=== PATIENT | female | born 1950 | race Caucasian/White ===

== ENCOUNTER → 2018-01-05 | Outpatient (CLI) | payer OTHER ==
[~2018-01-05] MED LIST: ADIPEX-P37.5 MG PO; AMITRIPTYLINE H10 M3 PO; BENICAR20 MG PO; CYCLOBENZAPRINE5 MG PO; CYMBALTA60 MG PO; GLYBURIDE 2.52.5 MG PO; LIPITOR 20 MG T20 M1; METFORMIN HCL1000 MG PO; NEURONTIN600 MG PO; OXYCODONE HCL10 MG; VALIUM5 MG PO
== END ==
LOC: RAD 09:48
DX: M51.36 Other intervertebral disc degeneration, lumbar region (principal)

== ENCOUNTER 2018-01-06 18:19 | Emergency (ER) | payer OTHER ==
[~2018-01-06] VITALS: Ht 170.2 cm; Wt 108.4 kg
--- NOTE | ~2018-01-06 | EKG ---
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: MARY : 1950 Requested By: Edwin Brock Order Number: [id number] MD: Favian Gonzalez Measurements Intervals [place] Rate: 78 P: 62 IN: 148 QRS: 25 QRSD: 103 T: 24 QT: 380 QTc: 433 Interpretive Statements Sinus rhythm No significant abnormality No previous ECG available for comparison Electronically Signed On 01-07-2018 8:10:18 CHANNEL MARKETING SPECIALIST by Favian Gonzalez [email or web address] <ELECTRONICALLY SIGNED> By: Favian Gonzalez MD, [facility] 01/07/18 0810 1838 1838 Favian Gonzalez MD, FACC /EPI
[2018-01-06 19:30] LABS: ABSOLUTE NEUTROPHILS 4.9 thou/uL (1.4-8.2); BASOPHILS 1.1 % (0.0-2.0); EOSINOPHILS 1.8 % (0.0-3.0); HEMATOCRIT 28.1 % (37.0-47.0); HEMOGLOBIN 9.3 gm/dL (12.0-15.0); LYMPHOCYTES 22.9 % (24.0-44.0); MCH 26.5 pg (26.0-34.0); MCHC 33.1 g/dL (28.0-37.0); MCV 80.1 fL (80.0-100.0); MONOCYTES 6.7 % (1.0-8.0); PLATELET COUNT 319 thou/uL (150-400); POLYS 67.5 % (36.0-66.0); RBC 3.52 mil/uL (4.20-5.00); RDW 14.5 % (10.5-14.5); WBC 7.2 thou/uL (4.0-11.0)
[2018-01-06 19:40] LABS: ANION GAP 9 mmol/L (7-16); BUN 28 mg/dL (7-18); CALCIUM 9.6 mg/dL (8.5-10.1); CHLORIDE 104 mmol/L (98-107); CO2 27 mmol/L (21-32); CREATININE 1.2 mg/dL (0.6-1.0); GLUCOSE 76 mg/dL (74-106); POTASSIUM 3.8 mmol/L (3.5-5.1); SODIUM 140 mmol/L (136-145)
[2018-01-06] MEDS ORDERED: OXYCODONE HCL10 MG (19:42)
[2018-01-06] MEDS ORDERED: BENICAR20 MG PO (19:42)
[2018-01-06] MEDS ORDERED: CYMBALTA60 MG PO (19:42)
[2018-01-06] MEDS ORDERED: VALIUM5 MG PO (19:42)
[2018-01-06] MEDS ORDERED: AMITRIPTYLINE H10 M3 PO (19:42)
[2018-01-06] MEDS ORDERED: METFORMIN HCL1000 MG PO (19:43)
[2018-01-06] MEDS ORDERED: NEURONTIN600 MG PO (19:43)
[2018-01-06] MEDS ORDERED: LIPITOR 20 MG T20 M1 (19:43)
[2018-01-06 19:45] LABS: ALBUMIN 3.3 g/dL (3.4-5.0); SGOT 19 U/L (15-37); SGPT 26 U/L (30-65); TOTAL BILIRUBIN 0.3 mg/dL (<0.1-1.0); TOTAL PROTEIN 7.2 g/dL (6.4-8.2); TROPONIN-I < 0.04 ng/mL (<0.06)
[2018-01-06] MEDS ORDERED: GLYBURIDE 2.52.5 MG PO (19:54)
[2018-01-06] MEDS ORDERED: ADIPEX-P37.5 MG PO (19:55)
[2018-01-06] MEDS ORDERED: CYCLOBENZAPRINE5 MG PO (20:40)
[2018-01-06 20:45] VITALS: BP 145/76
== END 2018-01-06 21:01 | disposition home or self-care (01) ==
LOC: ER 18:19
PROVIDERS: Physician Assistant
DX: M62.830 Muscle spasm of back (principal); E86.0 Dehydration; K21.9 Gastro-esophageal reflux disease without esophagitis; I10 Essential (primary) hypertension; Z90.49 Acquired absence of other specified parts of digestive tract; Z90.710 Acquired absence of both cervix and uterus

== ENCOUNTER 2018-01-24 21:20 | Inpatient (IN) | payer OTHER ==
[~2018-01-24] VITALS: Ht 170.2 cm; Wt 117.5 kg
--- NOTE | ~2018-01-24 | EKG ---
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: lori : 1950 Requested By: Shaheed Herrera Order Number: [id number] MD: Favian Gonzalez Measurements Intervals [place] Rate: 75 P: 29 ID: 231 QRS: 29 QRSD: 103 T: 19 QT: 391 QTc: 437 Interpretive Statements Sinus rhythm Low voltage Compared to ECG 01/06/2018 18:38:03 no significant change was found Electronically Signed On 01-25-2018 8:02:24 GUEST SPECIALIST by Favian Gonzalez [email or web address] <ELECTRONICALLY SIGNED> By: Favian Gonzalez MD, [facility] 01/25/18 0802 03 03 Favian Gonzalez MD, [facility] /EPI
--- NOTE | ~2018-01-24 | HC ---
[facility] [place] [address] CONSULTATION Name: CHELLY MARTINES Room #: 245-P [facility] IN M.R.#: [id number] Admission: 01/24/18 Attend Phys: Kraig Leyva MD Discharge: Date of : 54 Report #: [id number] THIS REPORT FOR: //name// CC: Harjit Gandhi REASON FOR CONSULTATION: Elevated creatinine. REASON FOR PRESENTATION: Mental status issues and hypoglycemia. HISTORY OF PRESENT ILLNESS: A 67-year-old with past medical history of diabetes mellitus and hypertension. She was acting in an unusual way yesterday. She was talking with her when he realized that she has an acute mental status issues. She was confused. She was not making sense to him. She also had some visual hallucination. She was brought for further evaluation and management. Upon presentation, her blood sugar was 37. She is known to be diabetic and is maintained on glyburide and metformin. She is also maintained on olmesartan. On her presentation to the emergency room, she was found to have an acute kidney injury with elevated creatinine of 10.5. I was consulted to manage her acute kidney injuries. She denies nonsteroidal anti-inflammatory medications intake. She is not aware of any previous kidney problems. She has no uremic symptoms. MEDICATIONS: 1. Olmesartan. 2. Atorvastatin. 3. Metformin. 4. Gabapentin. 5. Glyburide. PAST MEDICAL AND SURGICAL HISTORY: 1. Osteoarthritis. 2. GERD. 3. Status post appendectomy. 4. Hysterectomy. 5. Diabetes mellitus. 6. Hypertension. 7. Arthroplasty of the left knee. 8. Cholecystectomy. SOCIAL HISTORY: She is a former smoker, she quit about one year ago. No drug or alcohol abuse. She lives with her . ALLERGIES: SULFA. REVIEW OF SYSTEMS: GENERAL: Significant for the above-mentioned symptoms. [facility] [address] [place] [address] CONSULTATION Name: CHELLY MARTINES Room #: 245-P [facility] IN [facility].#: [id number] Admission: 01/24/18 Attend Phys: Kraig Leyva MD Discharge: Date of : 54 Report #: [id number] CARDIOVASCULAR: No chest pain or palpitation. PULMONARY: No cough or hemoptysis. GASTROINTESTINAL: Significant for nausea, vomiting, and diarrhea. GENITOURINARY: No frequency, no urgency, and no hesitancy. NEUROLOGIC: As per the history of present illness. SKIN: No rash or ulcerations. PHYSICAL EXAMINATION: GENERAL: She is alert and oriented. VITAL SIGNS: Temperature 36.6, blood pressure 122/59. HEAD AND NECK: No jugular venous distention, no bruit, no thyromegaly. CHEST: Clear to auscultation bilaterally. CARDIOVASCULAR: Regular with no rub detected. ABDOMEN: Soft, nontender with no hepatosplenomegaly. LOWER EXTREMITIES: No edema with intact peripheral pulses. LABORATORY VALUES: Reviewed. She is anemic with a hemoglobin of 8.6. No eosinophilia. Sodium 140, potassium 5.3, carbon dioxide 18, BUN 97, creatinine 10.1, calcium 8, phosphorus 8.9. ASSESSMENT, IMPRESSION, AND PLAN: 1. Acute kidney injury. 2. Hyperkalemia. 3. Metabolic acidosis. 4. Hyperphosphatemia. 5. Anemia. 6. This is a rather dramatic acute kidney injury with metabolic acidosis, likely related to metformin. 7. We will initiate the appropriate workup. 8. Discontinue all offending agents including oral hypoglycemic agent. 9. Discontinue ARB. 10. Serology workup. 11. Keep on IV fluid. 12. Strict input and output. 13. Ultrasound of both kidneys. 14. We will continue to follow along. <ELECTRONICALLY SIGNED> By: Harjit Gomes MD 01/27/18 1014 0830 1110 Harjit Gomes MD /nt
[2018-01-24 21:28] VITALS: BP 138/60
[2018-01-24 22:00] LABS: EOSINOPHILS 1.4 % (0.0-3.0); HEMATOCRIT 25.6 % (37.0-47.0); HEMOGLOBIN 8.6 gm/dL (12.0-15.0); LYMPHOCYTES 9.3 % (24.0-44.0); MCH 26.6 pg (26.0-34.0); MCHC 33.6 g/dL (28.0-37.0); MCV 79.2 fL (80.0-100.0); MONOCYTES 5.9 % (1.0-8.0); PLATELET COUNT 224 thou/uL (150-400); POLYS 82.4 % (36.0-66.0); RBC 3.23 mil/uL (4.20-5.00); RDW 15.5 % (10.5-14.5); WBC 7.3 thou/uL (4.0-11.0)
[2018-01-24 22:13] LABS: ANION GAP 18 mmol/L (7-16); BUN 103 mg/dL (7-18); CALCIUM 9.1 mg/dL (8.5-10.1); CHLORIDE 103 mmol/L (98-107); CO2 18 mmol/L (21-32); CREATININE 10.7 mg/dL (0.6-1.0); SODIUM 139 mmol/L (136-145)
[2018-01-24 22:18] LABS: MAGNESIUM 2.1 mg/dL (1.8-2.4); SGOT 20 U/L (15-37); SGPT 21 U/L (30-65); TOTAL BILIRUBIN 0.3 mg/dL (<0.1-1.0); TOTAL PROTEIN 6.6 g/dL (6.4-8.2); TROPONIN-I < 0.04 ng/mL (<0.06)
[2018-01-24 22:23] LABS: GLUCOSE 39 mg/dL (74-106)
[2018-01-25] VITALS (14 sets, daily range): BP systolic 86–126; BP diastolic 30–69
[2018-01-25 01:27] LABS: URINE BILIRUBIN NEGATIVE (Negative); URINE BLOOD NEGATIVE (Negative); URINE CLARITY CLEAR; URINE COLOR YELLOW; URINE GLUCOSE-RANDOM* NEGATIVE (Negative); URINE KETONES NEGATIVE (Negative); URINE LEUKOCYTES-REFLEX NEGATIVE (Negative); URINE NITRITE-REFLEX NEGATIVE (Negative); URINE PROTEIN (DIPSTICK) NEGATIVE (Negative); URINE SPECIFIC GRAVITY 1.015 (1.005-1.035); URINE UROBILINOGEN 0.2 E.U./dl (0.2-1.0)
[2018-01-25 06:48] LABS: HEMATOCRIT 24.6 % (37.0-47.0); MCH 26.4 pg (26.0-34.0); MCHC 32.8 g/dL (28.0-37.0); MCV 80.7 fL (80.0-100.0); RBC 3.05 mil/uL (4.20-5.00); RDW 15.3 % (10.5-14.5); WBC 6.6 thou/uL (4.0-11.0)
[2018-01-25 07:07] LABS: CREATININE 10.1 mg/dL (0.6-1.0); PHOSPHORUS 8.9 mg/dL (2.5-4.9); POTASSIUM 5.3 mmol/L (3.5-5.1)
[2018-01-25 11:10] LABS: URINE CREATININE-RANDOM* 35.6 mg/dL; URINE PROTEIN-RANDOM* 32.1 mg/dL (<11.9)
[2018-01-25 15:09] LABS: IgA 143 mg/dL (87-352); IgG 519 mg/dL (700-1600); IgM 31 mg/dL (26-217)
[2018-01-26] VITALS (25 sets, daily range): BP systolic 94–151; BP diastolic 58–106
[2018-01-26 04:58] LABS: ALBUMIN 2.2 g/dL (3.4-5.0); CALCIUM 7.5 mg/dL (8.5-10.1); CREATININE 9.4 mg/dL (0.6-1.0); PHOSPHORUS 6.4 mg/dL (2.5-4.9); POTASSIUM 5.5 mmol/L (3.5-5.1)
[2018-01-26 10:13] LABS: COMPLEMENT-C3 144 mg/dL (82-167); COMPLEMENT-C4 33 mg/dL (14-44)
[2018-01-27] VITALS (30 sets, daily range): BP systolic 84–157; BP diastolic 59–119
[2018-01-27 05:02] LABS: HEMATOCRIT 25.3 % (37.0-47.0); HEMOGLOBIN 8.5 gm/dL (12.0-15.0); MCH 26.6 pg (26.0-34.0); MCHC 33.5 g/dL (28.0-37.0); MCV 79.3 fL (80.0-100.0); RBC 3.19 mil/uL (4.20-5.00); WBC 8.1 thou/uL (4.0-11.0)
[2018-01-27 05:14] LABS: ALBUMIN 2.2 g/dL (3.4-5.0); CREATININE 9.2 mg/dL (0.6-1.0); PHOSPHORUS 6.5 mg/dL (2.5-4.9); POTASSIUM 5.6 mmol/L (3.5-5.1)
[2018-01-27 08:08] LABS: GLOBULIN TOTAL 2.4 g/dL (2.2-3.9); M-SPIKE Not Observed g/dL (Not Observed)
[2018-01-27 10:37] LABS: BE(vivo) -12.1 mmol/L (-2 to +3); HCO3 13.3 mmol/L (22.0-26.0); PCO2 28.7 mmHg (35.0-45.0); PO2 92.2 mmHg (80.0-100.0); pH 7.285 (7.360-7.450); sO2 96.3 % (92.0-98.0)
[2018-01-27 15:10] LABS: KAPPA FREE LIGHT CHAINS 61.8 mg/L (3.3-19.4); KAPPA/LAMBDA RATIO 1.54 (0.26-1.65); LAMBDA FREE LIGHT CHAINS 40.1 mg/L (5.7-26.3)
[2018-01-28] VITALS (30 sets, daily range): BP systolic 119–154; BP diastolic 59–118
[2018-01-28 05:45] LABS: HEMATOCRIT 23.1 % (37.0-47.0); MCH 26.7 pg (26.0-34.0); MCHC 34.6 g/dL (28.0-37.0); MCV 77.2 fL (80.0-100.0); RBC 2.99 mil/uL (4.20-5.00); RDW 15.7 % (10.5-14.5); WBC 7.1 thou/uL (4.0-11.0)
[2018-01-28 05:54] LABS: ALBUMIN 2.2 g/dL (3.4-5.0); CALCIUM 8.2 mg/dL (8.5-10.1); PHOSPHORUS 5.7 mg/dL (2.5-4.9); POTASSIUM 4.4 mmol/L (3.5-5.1)
[2018-01-28 05:58] LABS: CREATININE 6.1 mg/dL (0.6-1.0)
[2018-01-28 13:07] LABS: ANA INTERPRETATION Negative (Negative)
[2018-01-28 14:08] LABS: HEP B SURFACE Ab(ANTI-HBS Non Reactive (()); HEPATITIS B SURFACE AG Negative (Negative)
[2018-01-29 00:01] VITALS: BP 126/73
[2018-01-29 05:01] LABS: HEMOGLOBIN 7.8 gm/dL (12.0-15.0); MCH 26.5 pg (26.0-34.0); MCHC 34.1 g/dL (28.0-37.0); MCV 77.9 fL (80.0-100.0); RBC 2.95 mil/uL (4.20-5.00); RDW 15.5 % (10.5-14.5); WBC 5.9 thou/uL (4.0-11.0)
[2018-01-29 05:10] LABS: ALBUMIN 2.3 g/dL (3.4-5.0); CALCIUM 8.2 mg/dL (8.5-10.1); POTASSIUM 3.7 mmol/L (3.5-5.1)
[2018-01-29 05:21] LABS: CREATININE 4.8 mg/dL (0.6-1.0)
[2018-01-29 08:00] VITALS: BP 137/72
[2018-01-29 12:00] VITALS: BP 140/85
[2018-01-29 15:53] VITALS: BP 140/72
[2018-01-30 03:45] VITALS: BP 157/80
[2018-01-30 06:10] LABS: HEMATOCRIT 23.6 % (37.0-47.0); HEMOGLOBIN 7.9 gm/dL (12.0-15.0); MCH 26.2 pg (26.0-34.0); MCHC 33.4 g/dL (28.0-37.0); MCV 78.4 fL (80.0-100.0); RBC 3.01 mil/uL (4.20-5.00); RDW 15.3 % (10.5-14.5); WBC 6.3 thou/uL (4.0-11.0)
[2018-01-30 06:21] LABS: CALCIUM 8.5 mg/dL (8.5-10.1); CREATININE 5.4 mg/dL (0.6-1.0); POTASSIUM 3.7 mmol/L (3.5-5.1)
[2018-01-30 21:00] VITALS: BP 152/80
[2018-01-31 04:45] VITALS: BP 161/83
[2018-01-31 06:35] LABS: ALBUMIN 2.4 g/dL (3.4-5.0); CALCIUM 8.7 mg/dL (8.5-10.1); CREATININE 5.6 mg/dL (0.6-1.0); PHOSPHORUS 5.6 mg/dL (2.5-4.9); POTASSIUM 3.7 mmol/L (3.5-5.1)
[2018-01-31 08:00] VITALS: BP 154/80
[2018-01-31 12:00] VITALS: BP 147/78
[2018-01-31 16:11] VITALS: BP 144/78
[2018-01-31 18:50] VITALS: BP 149/61
[2018-02-01 03:04] VITALS: BP 143/85
[2018-02-01 08:21] VITALS: BP 154/76
[2018-02-01 08:59] LABS: ALBUMIN 2.6 g/dL (3.4-5.0); CALCIUM 8.7 mg/dL (8.5-10.1); CREATININE 5.9 mg/dL (0.6-1.0); PHOSPHORUS 5.7 mg/dL (2.5-4.9); POTASSIUM 3.7 mmol/L (3.5-5.1)
[2018-02-01 13:24] VITALS: BP 145/73
[2018-02-01 18:05] VITALS: BP 135/85
[2018-02-02 04:00] VITALS: BP 171/84
[2018-02-02 06:00] LABS: HEMATOCRIT 21.6 % (37.0-47.0); HEMOGLOBIN 7.4 gm/dL (12.0-15.0); MCH 26.8 pg (26.0-34.0); MCV 78.9 fL (80.0-100.0); RBC 2.74 mil/uL (4.20-5.00); RDW 15.4 % (10.5-14.5); WBC 6.2 thou/uL (4.0-11.0)
[2018-02-02 06:15] LABS: ALBUMIN 2.5 g/dL (3.4-5.0); CALCIUM 8.6 mg/dL (8.5-10.1); CREATININE 5.8 mg/dL (0.6-1.0); PHOSPHORUS 5.8 mg/dL (2.5-4.9); POTASSIUM 3.8 mmol/L (3.5-5.1)
[2018-02-02 08:12] VITALS: BP 182/74
[2018-02-02 12:38] VITALS: BP 180/92
[2018-02-02 20:05] VITALS: BP 150/77
[2018-02-03] VITALS (7 sets, daily range): BP systolic 149–187; BP diastolic 69–99
[2018-02-03 01:10] LABS: GLYCOHEMOGLOBIN (HGB A1C) 5.1 % (4.8-5.6)
[2018-02-03 06:32] LABS: ALBUMIN 2.7 g/dL (3.4-5.0); CALCIUM 8.5 mg/dL (8.5-10.1); CREATININE 5.9 mg/dL (0.6-1.0); POTASSIUM 3.6 mmol/L (3.5-5.1)
[2018-02-04 04:20] VITALS: BP 174/88
[2018-02-04 05:30] VITALS: BP 156/78
[2018-02-04 06:37] LABS: ALBUMIN 2.7 g/dL (3.4-5.0); CALCIUM 8.7 mg/dL (8.5-10.1); CREATININE 5.6 mg/dL (0.6-1.0); PHOSPHORUS 6.2 mg/dL (2.5-4.9); POTASSIUM 3.5 mmol/L (3.5-5.1)
[2018-02-04 08:41] VITALS: BP 157/84
[2018-02-04 13:06] VITALS: BP 157/84
== END 2018-02-04 14:44 | disposition home or self-care (01) | DRG 682 ==
LOC: ER 21:20 → EROBS 22:40 → 2N 22:40 → ICU 22:40 → 2N 01-25 00:06 → ICU 01-25 10:17 → 3W 01-29 18:06 → ENTRNSPT 02-04 14:34 → EDTRNSPTSTS 02-04 14:38 → 3W 02-04 14:44
PROVIDERS: Emergency Medicine; Hospitalist; Internal Medicine; Internal Medicine Nephrology; Nurse Practitioner Acute Care
PROC: 5A1D70Z Performance of Urinary Filtration, Intermittent, Less than 6 Hours Per Day (ICD-10-PCS; principal; 2018-01-27)
PROC: 02HV33Z Insertion of Infusion Device into Superior Vena Cava, Percutaneous Approach (ICD-10-PCS; 2018-01-27)
PROC: 5A1D70Z Performance of Urinary Filtration, Intermittent, Less than 6 Hours Per Day (ICD-10-PCS; 2018-01-28)
DX: N17.0 Acute kidney failure with tubular necrosis (principal); G93.41 Metabolic encephalopathy; E87.2 Acidosis; Z68.41 Body mass index [BMI] 40.0-44.9, adult; K21.9 Gastro-esophageal reflux disease without esophagitis; I10 Essential (primary) hypertension; E66.9 Obesity, unspecified; D64.9 Anemia, unspecified; E11.649 Type 2 diabetes mellitus with hypoglycemia without coma; E87.5 Hyperkalemia; E83.39 Other disorders of phosphorus metabolism; E78.5 Hyperlipidemia, unspecified; F32.9 Major depressive disorder, single episode, unspecified; Z96.652 Presence of left artificial knee joint; Z87.891 Personal history of nicotine dependence; Z90.49 Acquired absence of other specified parts of digestive tract; Z90.710 Acquired absence of both cervix and uterus; Z79.899 Other long term (current) drug therapy; Z88.2 Allergy status to sulfonamides; Z82.49 Family history of ischemic heart disease and other diseases of the circulatory system
CPT/HCPCS: 10078; 10203; 10879; 27000; 32100

== ENCOUNTER → 2018-04-27 | Outpatient (CLI) | payer OTHER | LOC: RAD 16:08 | DX: M16.11 Unilateral primary osteoarthritis, right hip (principal); M76.891 Other specified enthesopathies of right lower limb, excluding foot ==

== ENCOUNTER → 2018-10-27 | Outpatient (CLI) | payer OTHER ==
--- NOTE | ~2018-10-27 | SLE ---
[facility] [place] [address] POLYSOMNOGRAPHY STUDY Name: CHELLY MARTINES Room #: [facility]#: [id number] Admission: 10/27/18 Attend Phys: Bernard Valentine MD Discharge: Date of : 54 Report #: [id number] THIS REPORT FOR: //name// CC: Bernard Gandhi MD DATE OF SERVICE: 10/27/2018 ATTENDING PHYSICIAN: Dr. Yadiel Gandhi. The patient is a 67-year-old who weighs 245 pounds and is 67 inches tall with a BMI of 38.4. The patient's [place] score was 9. The patient has a history of sleep apnea and needed a new CPAP machine. Per insurance request only a PSG was requested. During the night study, the patient spent 361 minutes in bed and slept for 249 minutes with a low sleep efficiency of 69%. Sleep latency was 18 minutes with absent REM sleep. Sleep architecture showed increased stage 1 and stage 2 sleep, normal slow wave and absent REM sleep. During the night study, the patient had 65 apneas, 41 obstructive, 22 mixed and 2 central, and 80 hypopneas. The patient's apnea-hypopnea index was 35 per hour. REM index was not available due to lack of REM sleep. The patient's supine index was 65 per hour. EKG monitoring revealed an average heart rate of 69 beats per minute and the maximum 85 beats per minute, normal sinus rhythm, no sustained arrhythmias observed. PLMS were seen at an index of 10.6 per hour and 2.9 per hour caused EEG arousals. Nocturnal oximetry study revealed an average oxygen saturation of 93% with a lowest of 79%. Twenty minutes were spent in oxygen saturation of less than 89%. The patient did meet the criteria for split night study; however, per insurance requirement only PSG was ordered. IMPRESSION: 1. Severe sleep apnea-hypopnea syndrome at an apnea-hypopnea index of 35 per hour. Absence of REM sleep can further underestimate the severity of sleep apnea. 2. Nocturnal hypoxia secondary to obstructive sleep apnea. 3. Mild periodic limb movements of sleep without any significant EEG arousals. RECOMMENDATIONS: [facility] [address] [place] [address] POLYSOMNOGRAPHY STUDY Name: CHELLY MARTINES Room #: [facility]#: [id number] Admission: 10/27/18 Attend Phys: Bernard Valentine MD Discharge: Date of : 54 Report #: [id number] 1. The patient would benefit from in-lab CPAP titration study. 2. Once optimum CPAP pressure is achieved, then follow up in 4-6 weeks to assess compliance with CPAP and to document clinical improvement. 3. Weight loss is strongly advised. 4. Avoid SUBWAY REPAIR SUPERVISOR depressants. 5. Cautioned regarding driving until symptoms of sleep apnea have resolved with the use of CPAP. <ELECTRONICALLY SIGNED> By: Bernard Valentine MD 10/31/18 2157 1431 1453 Bernard Valentine MD /ta
== END ==
LOC: SLEEPLAB 09:51
DX: G47.33 Obstructive sleep apnea (adult) (pediatric) (principal); G47.61 Periodic limb movement disorder; R09.02 Hypoxemia

== ENCOUNTER → 2019-09-28 | Outpatient (CLI) | payer OTHER ==
[~2019-09-28] MED LIST changes: +AMITRIPTYLINE H10 M1 PO; +ASPIR 8181 MG PO; +COMMODE MISCELL; +IBUPROFEN 400400 M2 PO; -LIPITOR 20 MG T20 M1; +LIPITOR 20 MG T20 M1 PO; +NEURONTIN 300300 M1 PO; +OXYCODONE HCL10 MG PO; +VITAMIN D31000 UNIT PO
--- NOTE | 2019-09-28 09:47 | 2DMMODE ---
[facility] [place] [address] 2 D/M-MODE ECHOCARDIOGRAM Name: CHELLY MARTINES Room #: [facility]#: [id number] Admission: 09/28/19 Attend Phys: Ty Benson MD Discharge: Date of : 54 Report #: [id number] THIS REPORT FOR: //name// APPROVED REPORT Study performed: 09/28/2019 07:54:29 EXAM: Comprehensive 2D, Doppler, and color-flow Echocardiogram Patient Location: Out-Patient Status: routine BSA: 2.21 HR: 71 bpm BP: 126/76 mmHg Rhythm: NSR Other Information Study Quality: Adequate Indications Dyspnea Hx: DM, HTN, HLP, Tobacco use 2D Dimensions RVDd: 30.30 mm IVSd: 11.87 (7-11mm) LVOT Diam: 20.42 (18-24mm) LVDd: 50.26 mm PWd: 10.72 (7-11mm) Ascending Ao: 34.29 (22-36mm) LVDs: 33.68 (25-40mm) Aortic Root: 33.89 mm IVC: 13.00 mm Volumes Left Atrial Volume (Systole) Single Plane 4CH: 79.96 mL Single Plane 2CH: 43.48 mL LA ESV Index: 28.00 mL/m2 Aortic Valve AoV Peak Joseph.: 1.51 m/s AO Peak Gr.: 9.08 mmHg LVOT Max P.94 mmHg LVOT Max V: 0.99 m/s HECTOR Vmax: 2.16 cm2 Mitral Valve E/A Ratio: 0.6 MV Decel. Time: 275.21 ms [facility] [address] [place] [address] 2 D/M-MODE ECHOCARDIOGRAM Name: BOBBICHELLY J Room #: [facility]#: [id number] Admission: 09/28/19 Attend Phys: Ty Benson MD Discharge: Date of : 54 Report #: [id number] MV E Max Joseph.: 0.64 m/s MV A Joseph.: 1.05 m/s MV PHT: 79.81 ms IVRT: 78.43 ms Pulmonary Valve PV Peak Joseph.: 1.05 m/s PV Peak Gr.: 4.39 mmHg Pulmonary Vein P Vein S: 0.50 m/s P Vein A: 0.32 m/s P Vein D: 0.27 m/s P Vein A Dur.: 92.3 msec P Vein S/D Ratio: 1.85 Tricuspid Valve TR Peak Joseph.: 2.64 m/s RAP Estimate: 5.00 mmHg TR Peak Gr.: 27.80 mmHg PA Pressure: 32.00 mmHg Left Ventricle The left ventricle is normal size. There is normal LV segmental wall motion. There is normal left ventricular wall thickness. The left ventricular systolic function is normal. The left ventricular ejection fraction is within the normal range. LVEF is 65-70%. Mild diastolic dysfunction is present (impaired relaxation pattern). Right Ventricle The right ventricle is normal size. The right ventricular systolic function is normal. Atria The left atrium size is normal. The right atrium size is normal. Aortic Valve Aortic valve is mildly calcified. No aortic regurgitation is present. There is no aortic valvular stenosis. Mitral Valve The mitral valve is normal in structure. No mitral regurgitation. No evidence of mitral valve stenosis. Tricuspid Valve The tricuspid valve is normal in structure. Mild tricuspid regurgitation. Estimated PAP is 32 mmHg. [facility] [address] [place] [address] 2 D/M-MODE ECHOCARDIOGRAM Name: CHELLY MARTINES [place] Room #: [facility]#: [id number] Admission: 09/28/19 Attend Phys: Ty Benson MD Discharge: Date of : 54 Report #: [id number] Pulmonic Valve The pulmonary valve is normal in structure. Mild pulmonic regurgitation. Great Vessels The aortic root is normal in size. IVC is normal in size and collapses >50% with inspiration. Pericardium There is no pericardial effusion. <Conclusion> The left ventricular systolic function is normal. There is normal LV segmental wall motion. LVEF is 65-70%. Mild diastolic dysfunction Aortic valve is mildly calcified. No aortic regurgitation or stenosis The mitral valve is normal in structure. No mitral regurgitation. Mild tricuspid regurgitation. Estimated pulmonary artery pressure of 32 mmHg. There is no pericardial effusion. <ELECTRONICALLY SIGNED> By: Favian Gonzalez MD, FACC 09/28/19946 6 6 Favian Gonzalez MD, FACC /INF
--- NOTE | 2019-10-03 17:20 | PFR/MVV ---
[facility] [place] [address] PULMONARY FUNCTION MVV/REPORT Name: CHELLY MARTINES Room #: REG [facility].#: [id number] Admission: 09/28/19 Attend Phys: Ty Benson MD Discharge: Date of : 54 Report #: [id number] THIS REPORT FOR: //name// >> SPIROMETRY: (BTPS) Height: 67 in cm Weight: 248 lbs kg Exam Date: 09/28/19 PRE-RX POST-RX PRED BEST %PRED BEST %PRED %CHG FVC LITERS . 3.27 . 4.41 . 135 . 4.11 . 126 . -7 FEV1 LITERS . 2.38 . 3.33 . 140 . 3.31 . 139 . -1 FEV1/FVC % . 72 . 76 . 105 . 81 . 112 . 7 HPK99-45% L/Sec . 2.59 . 2.96 . 114 . 3.48 . 134 . 18 PEF L/SEC . 5.95 . 5.76 . 97 . 5.47 . 92 . -5 FEF50/FIF50 UNITLESS . . 0.69 . . .127 . . 83 MVV L/Min . 87 . 64 . 73 f 1/Min . . 155 . >> LUNG VOLUMES: (BTPS) PRE-RX POST-RX PRED AVG %PRED AVG %PRED %CHG VC Liters . 3.27 . 4.41 . 135 . . . TLC Liters . 5.45 . 5.95 . 109 . . . RV Liters . 2.14 . 1.54 . 72 . . . RV/TLC % . 39 . 26 . 66 . . . FRC [address] Liters . 2.40 . 2.18 . 91 . . . FRC N2 Liters . . . . . . ERV Liters . 1.10 . 0.63 . 58 . . . IC Liters . 2.20 . 2.83 . 129 . . . >> DIFFUSION: DLCO ml/Min/mmHg . 27.1 . 25.1 . 93 . . . DL Suzy ml/Min/mmHg . 27.1 . 25.1 . 93 . . . DLCO/VA ml/Min/mmHg . 3.65 . 4.27 . 117 . . . VA Liters . . 5.88 . . . . COMMENTS: COMMENTS: >> RESISTANCE: [facility] [address] [place] [address] PULMONARY FUNCTION MVV/REPORT Name: WILLIEALDOCHELLY Machado Room #: [facility].#: [id number] Admission: 09/28/19 Attend Phys: Ty Benson MD Discharge: Date of : 54 Report #: [id number] PRE-RX PRED AVG %PRED Raw Total cmH20/L/Sec . . 3.37 . Raw Insp cmH20/L/Sec . . 2.70 . Raw Exp cmH20/L/Sec . . 2.90 . Raw cmH20/L/Sec . 1.62 . 2.14 . 132 Gaw L/Sec/cmH20 . 0.574 . 0.468 . 81 sRaw cmH20 Sec . 3.89 . 7.30 . 188 sGaw l/cmH20 Sec . 0.257 . 0.137 . 53 Vtq Liters . . 3.41 . # = OUTSIDE 95% CONFIDENCE INTERVAL CALIBRATION: PRED: 3.00 ACTUAL: EXP 3.01 INSP 3.02 [facility]OL10-06 [facility] N-1804-4 >> INTERPRETATION/IMPRESSION: CC: Yadiel Benson Pulmonary Function Test Spirometric examination was normal. There was no significant bronchodilator response. Lung volumes are normal. Diffusion capacity is normal, corrected for alveolar volume. Flow volume loop is normal. IMPRESSION: Normal pulmonary functions. <ELECTRONICALLY SIGNED> By: Ty Benson MD 10/03/19 1720 Ty Benson MD /nt
== END ==
LOC: CV 07:31
DX: I08.8 Other rheumatic multiple valve diseases (principal); R06.00 Dyspnea, unspecified; M47.814 Spondylosis without myelopathy or radiculopathy, thoracic region; E11.9 Type 2 diabetes mellitus without complications; I10 Essential (primary) hypertension; E78.5 Hyperlipidemia, unspecified; Z72.0 Tobacco use

== ENCOUNTER 2019-09-29 08:59 | Inpatient (IN) | payer OTHER ==
[2019-09-15 13:15] LABS: URINE BILIRUBIN NEGATIVE (Negative); URINE BLOOD NEGATIVE (Negative); URINE CLARITY CLEAR; URINE COLOR YELLOW; URINE GLUCOSE-RANDOM* NEGATIVE (Negative); URINE KETONES NEGATIVE (Negative); URINE LEUKOCYTES-REFLEX NEGATIVE (Negative); URINE NITRITE-REFLEX NEGATIVE (Negative); URINE PROTEIN (DIPSTICK) 1+ (Negative); URINE SPECIFIC GRAVITY >= 1.030 (1.005-1.035); URINE UROBILINOGEN 0.2 E.U./dl (0.2-1.0)
[2019-09-15 13:16] LABS: HEMATOCRIT 38.1 % (37.0-47.0); HEMOGLOBIN 12.5 gm/dL (12.0-15.0); MCH 27.2 pg (26.0-34.0); MCHC 32.9 g/dL (28.0-37.0); MCV 82.8 fL (80.0-100.0); RBC 4.6 mil/uL (4.20-5.00); RDW 13.8 % (10.5-14.5); WBC 5.8 thou/uL (4.0-11.0)
[2019-09-15 13:26] LABS: ALBUMIN 4.1 g/dL (3.4-5.0); CALCIUM 9.4 mg/dL (8.5-10.1); CREATININE 1.5 mg/dL (0.6-1.0); CRYSTALS None Seen /LPF (None Seen); MUCUS 4-6 Moderate strn/LPF (None Seen); POTASSIUM 4.3 mmol/L (3.5-5.1); SQUAMOUS 4-10 Moderate /LPF (0-3); URINE RBC 3-10 Few /HPF (0-2); URINE WBC-REFLEX 0-5 Rare /HPF (0-5)
[2019-09-15 13:27] LABS: BACTERIA-REFLEX None Seen /HPF (None Seen); HYALINE CASTS 0-3 Few /LPF (None Seen)
--- NOTE | 2019-09-15 16:30 | EKG ---
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
[~2019-09-29] VITALS: Ht 170.2 cm; Wt 115.7 kg
[~2019-09-29 08:59] MED LIST changes: -ASPIR 8181 MG PO; -COMMODE MISCELL; -NEURONTIN 300300 M1 PO
[2019-09-29 17:00] VITALS: BP 109/51
[2019-09-29 18:04] VITALS: BP 126/60
[2019-09-29 20:10] VITALS: BP 131/77
[2019-09-30 02:55] VITALS: BP 147/81
[2019-09-30 05:12] LABS: HEMATOCRIT 28.6 % (37.0-47.0); HEMOGLOBIN 9.7 gm/dL (12.0-15.0); MCHC 33.8 g/dL (28.0-37.0); MCV 82.8 fL (80.0-100.0); RBC 3.45 mil/uL (4.20-5.00); RDW 13.6 % (10.5-14.5); WBC 9.6 thou/uL (4.0-11.0)
--- NOTE | 2019-09-30 06:24 | NUR ---
PATIENT ALERT AND ORIENTED X4. UP FROM OR AROUND 1600. DRESSING ON R HIP D/I. C/O PAIN, MED GIVEN. C/O R LEG AND BUTTOCKS NUMB BUT IS WEARING OFF. C/O THIRSTY ALOT. DRANK LOTS OF WATER. SLEPT OFF AND ON DURING THE NIGHT. URINATED SEVERAL TIMES.
[2019-09-30 07:45] VITALS: BP 144/77
--- NOTE | 2019-09-30 10:43 | NUR ---
INITIAL ASSESSMENT: Pt evaluated for d/c planning needs. Reviewed chart and spoke with nurse and pt. Pt is alert and oriented. Pt lives in house with spouse and was independent with ADL's prior to admission to the hospital. Pt has cane and CPAP at home. Pt needs walker for home use. Pt has not had home health in the past. Pt plans on returning home on d/c from hospital and has outpatient PT scheduled to begin on Thursday. Will remain available to assist as needed.
[2019-09-30] MEDS ORDERED: ASPIR 8181 MG PO (14:26)
[2019-09-30] MEDS ORDERED: NEURONTIN 300300 M1 PO (14:26)
--- NOTE | 2019-09-30 15:33 | NUR ---
PT RESTING IN BED AT THIS TIME. WAS GIVEN PRN MED AND IS LYING DOWN. PT WORKED WITH THERAPY. DISCHARGE PENDING. PLEASANT AND COOPERATIVE WITH CARE.
[2019-09-30 15:45] VITALS: BP 125/62
[2019-09-30 19:25] VITALS: BP 101/60
--- NOTE | 2019-10-01 03:40 | NUR ---
PATIENT ALERT AND ORIENTED X4. FATEMEH DRESSING ON R HIP D/I. PATIENT UP TO BATHROOM WITH ASSIST AND WALKER. C/O PAIN, MED GIVEN. SLEPT MOST OF NIGHT.
[2019-10-01 03:57] VITALS: BP 133/66
[2019-10-01 05:55] LABS: HEMATOCRIT 27.6 % (37.0-47.0); HEMOGLOBIN 9.2 gm/dL (12.0-15.0); MCH 27.7 pg (26.0-34.0); MCHC 33.2 g/dL (28.0-37.0); MCV 83.5 fL (80.0-100.0); RBC 3.3 mil/uL (4.20-5.00); RDW 13.8 % (10.5-14.5); WBC 6.4 thou/uL (4.0-11.0)
[2019-10-01 08:14] VITALS: BP 104/52
[2019-10-01] MEDS ORDERED: COMMODE MISCELL (09:23)
--- NOTE | 2019-10-01 10:32 | NUR ---
pt ate 100 of Shoes4youalR&L alert xs 4 no pain or resp distress noted. pt worked with therapy climbed stairs from pt point of view safe to go home.
[2019-10-01 10:34] VITALS: BP 104/52
[2019-10-01 14:08] VITALS: BP 104/52
--- NOTE | 2019-10-04 12:13 | O ---
[facility] [place] [address] OPERATIVE REPORT Name: CHELLY MARTINES Room #: 435-P [facility] IN M.R.#: [id number] Admission: 09/29/19 Attend Phys: Ciro Che MD Discharge: 10/01/19 Date of : 54 Report #: [id number] THIS REPORT FOR: //name// CC: Yadiel Che DATE OF SERVICE: 09/29/2019 PREOPERATIVE DIAGNOSIS: Right hip osteoarthritis. POSTOPERATIVE DIAGNOSIS: Right hip osteoarthritis. PROCEDURE: Right total hip arthroplasty. SURGEON: Ciro Che MD. FLEXIBLE NANNY: Berna Ferguson PA-C. INDICATIONS FOR FLEXIBLE NANNY: Throughout the case, extensive retraction and manipulation of the hip was required. This was afforded to me by my preschool teacher's assistant. ANESTHESIA: LMA. IMPLANTS: Benavidez and Nephew size 13 high offset Synergy press-fit stem, a size 54 R3 acetabular cup with a size 36+0 cobalt chrome head. ESTIMATED BLOOD LOSS: 50 mL. COMPLICATIONS: None. SPECIMENS: None. CONDITION UPON LEAVING THE OPERATING ROOM: Stable. INDICATIONS FOR PROCEDURE: The patient is a 68-year-old female with severe right hip osteoarthritis. She has failed conservative measures for this and after discussion with her, she elected for right total hip arthroplasty. DESCRIPTION OF PROCEDURE: Risks, benefits, alternatives, complications were discussed in detail with the patient including but not limited to risk of anesthesia, risk of damage to nerves, arteries, blood vessels, risk for infection, bleeding, risk for continued hip pain, leg length discrepancy, instability and need for reoperation. Informed consent was obtained from the patient. The right hip was appropriately marked in the preoperative holding area. IV Ancef was given for preoperative antibiotics and brought to the operating room and placed in supine position on operating room table. [address] [address] OPERATIVE REPORT Name: CHELLY MARTINES Room #: 435-P [facility] IN M.R.#: [id number] Admission: 09/29/19 Attend Phys: Ciro Che MD Discharge: 10/01/19 Date of : 54 Report #: [id number] anesthesia was induced without complication. She was then placed in the left lateral decubitus position with right hip uppermost. Right hip and lower extremity were prepped and draped in normal sterile fashion. Timeout was performed properly identifying the patient and procedure as well as the instrumentation and implants. All in the operating room were in agreement. Standard posterior approach to the hip was made with 10 blade through the skin. Dissection was taken down to fascia with Bovie cautery and the fascia was cleaned off with Lindsey elevator. Fresh 10 blade was used to make a fascial incision and this was taken proximally and distally with curved Bajwa scissor and Charnley retractor was placed. The trochanteric bursa was taken down with Bovie cautery. Piriformis tendon was identified, tagged and taken down with Bovie. Short external rotators were also taken down with Bovie cautery. Capsulotomy was made and capsule ends were tagged for later repair. Hip was dislocated. There was extensive osteoarthritic change of the femoral head. Femoral neck cut was made 1 cm proximal to lesser trochanter based on preoperative templating. The femoral head was removed. Deep acetabular retractors were placed. Labrum was removed sharply. Pulvinar was removed with Bovie cautery. Acetabulum was then sequentially reamed up to a size 54, at which point, there was excellent bleeding cancellous bone. This was trialed with a size 53 trial and found to have a good fit. A final size 54 R3 acetabular cup was then placed and seated. One acetabular screw was placed for backup fixation and polyethylene liner for a 36 head was placed. Attention was then turned to the femur. This was reamed and broached up to a size 13, at which point, the size 13 broach was stable, which was trialed with a high offset neck and a 36+0 head. Hip was reduced, taken through range of motion, found to be stable, found to have equal leg lengths. Hip was dislocated. Broach was removed and final size 13 high offset Synergy press-fit stem was placed. Hip was reduced, taken through range of motion, found to be stable, found to have equal leg lengths. Hip was dislocated one last time and a final size 36+0 cobalt chrome head was placed. Hip was reduced, taken through range of motion, found to be stable, found to have equal leg lengths. The joint was thoroughly irrigated with normal saline. A gram of vancomycin was placed deep in the joint. The capsule and piriformis were repaired with 0 FiberWire. Fascia was closed with 0 Vicryl, skin was closed with 2-0 Vicryl, skin jesu and a FATEMEH dressing was applied. The patient tolerated this procedure well and went to recovery room under care of anesthesia postoperatively. <ELECTRONICALLY SIGNED> By: Ciro Che MD 10/04/19 1213 1419 1429 Ciro Che MD /nt
== END 2019-10-01 14:10 | disposition home or self-care (01) | DRG 470 ==
LOC: PRE 08:59 → 4S 10:54 → TBA 10:54 → PRE 11:05 → 4S 16:01
PROVIDERS: ADMIT Orthopaedic Surgery
PROC: 0SR901A Replacement of Right Hip Joint with Metal Synthetic Substitute, Uncemented, Open Approach (ICD-10-PCS; principal; 2019-09-29)
PROC: 5A09357 Assistance with Respiratory Ventilation, Less than 24 Consecutive Hours, Continuous Positive Airway Pressure (ICD-10-PCS; 2019-09-30)
DX: M16.11 Unilateral primary osteoarthritis, right hip (principal); Z88.2 Allergy status to sulfonamides
CPT/HCPCS: 10102; 50010; 50101; 50382; 50414; 51412; 53000; 53078; 53367; 56524; 56528; 56530; 57095; 57103; 62110; 62900; 70005